=== PATIENT | female | born 1980 | race Caucasian/White ===

== ENCOUNTER 2025-04-30 22:02 | Inpatient (IN) | payer SELFPAY ==
[~2025-04-30] VITALS: Ht 154.9 cm; Wt 64.4 kg
[2025-04-30] MEDS: ACETAMINOPHEN 500MG TABLET PO ONE (23:52)
[2025-04-30] MEDS: ONDANSETRON HCL 4MG TABLET PO ONE (23:52)
[2025-05-01 00:15] LABS: BASOPHILS % 0.2 % (0.0-2.0); EOSINOPHILS % 0.2 % (0.0-5.0); HEMATOCRIT. 41.9 % (36.0-48.0); HEMOGLOBIN. 13.9 g/dL (12.0-16.0); LYMPHOCYTES % 8.3 % (20.0-50.0); MEAN PLATELET VOLUME 10.1 fl (7.4-10.4); MONOCYTES % 4.5 % (2.0-8.0); NEUTROPHILS % 86.8 % (40.0-76.0); PLATELET 185 x1000/uL (130-400); RED BLOOD CELL COUNT 4.78 mill/uL (4.2-5.4); RED CELL DISTRIBUTION WIDTH 13.3 % (11.6-14.6)
[2025-05-01 00:30] LABS: CREATININE 1.0 mg/dL (0.6-1.0)
[2025-05-01 00:31] LABS: TROPONIN I HIGH SENSITIVITY < 4 ng/L (3.0-34); UREA NITROGEN BLOOD 10 mg/dL (9-23)
[2025-05-01 00:32] LABS: ASPARTATE AMINOTRANSFERASE 16 IU/L (<34)
[2025-05-01 00:33] LABS: BILIRUBIN DIRECT 0.2 mg/dL (<=3.0); BILIRUBIN TOTAL 0.8 mg/dL (0.1-1.0); PROTEIN TOTAL 7.6 g/dL (6.0-8.3)
[2025-05-01 00:34] LABS: HCG SCREEN NEGATIVE
[2025-05-01] MEDS ORDERED: METRONIDAZOLE 500 MG PREMIX 100 ML IV ONE (02:45)
[2025-05-01] MEDS: CEFTRIAXONE 1GM/50ML 50 ML IV SCH (03:20)
[2025-05-01] MEDS ORDERED: ONDANSETRON HCL 4MG/2ML INJ IV PRN ×3 (03:30→11:00)
[2025-05-01] MEDS ORDERED: IPRATROPIUM/ALBUTEROL 0.5-3(2.5)MG/3ML NEB HHN PRN (03:30)
[2025-05-01] MEDS ORDERED: HYDROCODONE/ACETAMINOPHEN 7.5/325MG TABLET PO PRN (03:30)
[2025-05-01] MEDS ORDERED: CLONIDINE 0.1MG TABLET PO PRN (03:30)
[2025-05-01] MEDS ORDERED: GUAIFENESIN 200MG/10ML SUGAR FREE UDC PO PRN (03:30)
[2025-05-01] MEDS ORDERED: DOCUSATE SODIUM 100MG CAPSULE PO PRN (03:30)
[2025-05-01 04:00] VITALS: BP 107/66; PULSE 60; RESP 19; TEMP 36.2; O2SAT 95
[2025-05-01] MEDS ORDERED: VANCOMYCIN 1.25GM/250ML 250 ML IV SCH ×2 (04:00→12:00)
[2025-05-01 04:40] VITALS: BP 107/66; PULSE 95; RESP 18; TEMP 36.2512
[2025-05-01 08:00] VITALS: BP 96/58; PULSE 61; RESP 19; TEMP 36.9; O2SAT 97
[2025-05-01] MEDS ORDERED: SKIN ADHESIVE 0.7 GM EA TOP ONE (08:40)
[2025-05-01] MEDS ORDERED: BUPIVACAINE HCL/PF 0.5% (5MG/ML) 10ML ONE (08:41)
[2025-05-01] MEDS: LACTATED RINGERS 1,000 ML IV SCH (08:45)
[2025-05-01] MEDS: SODIUM CHLORIDE 0.9% 1,000 ML IV ONE (08:45)
[2025-05-01] MEDS: PANTOPRAZOLE SODIUM 40 MG/VIAL IV SCH (08:45)
[2025-05-01] MEDS ORDERED: NALOXONE HCL 0.4MG/ML VIAL IV PRN (09:15)
[2025-05-01] MEDS ORDERED: HYDROMORPHONE HCL/PF 1MG/ML INJ ONE (09:53)
[2025-05-01] MEDS ORDERED: MORPHINE SULFATE 4 MG/ML INJ (FOR IV/IM USE) IV PRN (10:00)
[2025-05-01] MEDS ORDERED: MORPHINE SULFATE 2 MG/ML INJ (NOT FOR IM USE) IV PRN (10:00)
[2025-05-01] MEDS ORDERED: HYDROCODONE/ACETAMINOPHEN 5/325MG TABLET PO PRN (10:00)
[2025-05-01] MEDS ORDERED: ROCURONIUM BROMIDE 10MG/ML VIAL 5ML IV ONE ×2 (10:03→10:23)
[2025-05-01] MEDS ORDERED: HYDRALAZINE 20MG/ML VIAL IV PRN (11:00)
[2025-05-01] MEDS ORDERED: DEXAMETHASONE 4MG/ML 1ML VIAL IV PRN (11:00)
[2025-05-01] MEDS ORDERED: HYDROMORPHONE HCL/PF 1MG/ML INJ IV PRN ×3 (11:00)
[2025-05-01] MEDS ORDERED: GLYCOPYRROLATE 0.2 MG/ML 2ML VIAL IV PRN (11:00)
[2025-05-01 12:00] VITALS: BP 109/70; PULSE 82; RESP 18; TEMP 36.4; O2SAT 99
[2025-05-01] MEDS: DEXT 5%/0.45% NACL KCL 20MEQ/L 1,000 ML IV SCH (13:34)
[2025-05-01] MEDS: PIPERACILLIN/TAZO 3.375G/50ML 50 ML IV SCH (13:34)
[2025-05-01] MEDS: HYDROCODONE/ACETAMINOPHEN 5/325MG TABLET PO PRN (13:46)
[2025-05-01 16:00] VITALS: BP 107/75; PULSE 85; RESP 20; TEMP 36.6; O2SAT 95
[2025-05-01 20:00] VITALS: BP 94/59; PULSE 89; RESP 19; TEMP 36.9; O2SAT 97
[2025-05-01] MEDS: ACETAMINOPHEN 325MG TABLET PO PRN (21:45)
[2025-05-01] MEDS ORDERED: VANCOMYCIN 750MG/150ML (BAXTER) IV SCH (22:00)
[2025-05-02] VITALS: BP 94/52; PULSE 71; RESP 18; TEMP 36.3; O2SAT 100
[2025-05-02 04:00] VITALS: BP 89/58; PULSE 52; RESP 18; TEMP 36.5; O2SAT 97
[2025-05-02] MEDS: SODIUM CHLORIDE 0.9% 250 ML IV ONE (04:01)
[2025-05-02 08:00] VITALS: BP 95/61; PULSE 64; RESP 17; TEMP 36.1; O2SAT 96
[2025-05-02] MEDS ORDERED: SODIUM CHLORIDE 0.9% 1,000 ML IV SCH (08:30)
[2025-05-02] MEDS ORDERED: HYDR-4001 PO ×2 (10:10→11:06)
[2025-05-02 10:31] LABS: BASOPHILS % 0.2 % (0.0-2.0); EOSINOPHILS % 0.3 % (0.0-5.0); HEMATOCRIT. 36.7 % (36.0-48.0); HEMOGLOBIN. 12.2 g/dL (12.0-16.0); LYMPHOCYTES % 20.4 % (20.0-50.0); MEAN PLATELET VOLUME 10.3 fl (7.4-10.4); MONOCYTES % 4.0 % (2.0-8.0); NEUTROPHILS % 75.1 % (40.0-76.0); PLATELET 166 x1000/uL (130-400); RED BLOOD CELL COUNT 4.17 mill/uL (4.2-5.4); RED CELL DISTRIBUTION WIDTH 13.4 % (11.6-14.6)
[2025-05-02 10:34] LABS: CREATININE 1.2 mg/dL (0.6-1.0); TRIGLYCERIDE 133 mg/dL (0-150); UREA NITROGEN BLOOD 13 mg/dL (9-23)
[2025-05-02 10:35] LABS: LDL CHOLESTEROL 80 mg/dL (5-100)
[2025-05-02 10:36] LABS: PHOSPHORUS 3.0 mg/dL (2.5-4.9)
[2025-05-02 10:37] LABS: T4 FREE 1.22 ng/dL (0.89-1.76)
[2025-05-02 11:22] VITALS: BP 98/61; PULSE 75; TEMP 97.9; O2SAT 97
[2025-05-02 12:00] VITALS: BP 98/61; PULSE 75; RESP 18; TEMP 36.6; O2SAT 97
== END 2025-05-02 14:18 | disposition home or self-care (01) | DRG 234 ==
LOC: ER 22:02 → EDBEDREQSVC 05-01 02:41 → EDBEDREQTM 05-01 02:41 → EDBEDREQ 05-01 02:50 → EDBEDREQTM 05-01 02:50 → ENRESERV 05-01 03:33 → 6EST 05-01 04:08
PROVIDERS: ADMIT Internal Medicine; ATTEND Internal Medicine
PROC: 0DTJ4ZZ Resection of Appendix, Percutaneous Endoscopic Approach (ICD-10-PCS; principal; 2025-05-01)
DX: K35.80 Unspecified acute appendicitis (principal); D72.829 Elevated white blood cell count, unspecified; R73.9 Hyperglycemia, unspecified; Z79.899 Other long term (current) drug therapy
CPT/HCPCS: 36415; 74176; 80048; 80061; 80076; 82550; 83605; 83735; 84100; 84145; 84439; 84443; 84484; 84703; 85025; 88304; 99285; A4606; J0665; J0696; J1171; J2470; J2543; J3373; J3490; J7030; J7120; Q0162